=== PATIENT | female | born 1940 | race Caucasian/White ===

== ENCOUNTER 2020-08-01 14:04 | Observation (INO) | payer MEDICARE, MEDICAID ==
[~2020-08-01] VITALS: Ht 167.6 cm; Wt 66.4 kg
--- NOTE | 2020-08-01 14:15 | NUR ---
TASK RN: [facility] W CO SUDDEN ONSET RUE AND LLE WEAKNESS, ONSET APPROX 30MIN AGO. PT EVALUATED UPON ARRIVAL TO ED, NO CODE NEURO CALLED. PT REPORTS S/S HAVE IMPROVED SINCE ONSET. 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 SENSATION INTACT. BILAT LOWER EXTREMITIES WITH EQUAL STRENGTH, STRENGTH AGAINST GRAVITY AND SENSATION. BP/SPO2/ECG MONITORING IN PLACE. SINUS ARRYTHMIA ON MONITOR. 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 PT DENIES CP/JEFFERY/FLANK PAIN. ERP UPDATED TO PT AND PLACED STAT ORDERS. CT CALLED TO REQUEST HASTENED CT. REPORT TO PRIMARY RNWILLIAM.
[2020-08-01 14:46] LABS: BASOPHILS # (AUTO) 0.02 x10^3/uL (0-0.1); BASOPHILS % (AUTO) 0 % (0-1); EOSINOPHILS # (AUTO) 0.04 x10^3/uL (0-0.4); EOSINOPHILS % (AUTO) 1 % (1-7); LYMPHOCYTES # (AUTO) 0.98 x10^3/uL (1-3.4); LYMPHOCYTES % (AUTO) 14 % (22-44); MD NO; MEAN CORPUSCULAR HEMOGLOBIN 30.4 pg (27.0-34.8); MEAN CORPUSCULAR HGB CONC 33.4 g/dL (32.4-35.8); MEAN CORPUSCULAR VOLUME 91.1 fL (80-100); MEAN PLATELET VOLUME 9.1 fL (7.4-10.4); MONOCYTES # (AUTO) 0.51 x10^3/uL (0.2-0.8); MONOCYTES % (AUTO) 7 % (2-9); NEUTROPHILS # (AUTO) 5.58 x10^3/uL (1.8-6.8); NEUTROPHILS % (AUTO) 78 % (42-75); PLATELET COUNT 235 x10^3/uL (130-400); RED BLOOD COUNT 5.13 x10^6/uL (3.82-5.3); RED CELL DISTRIBUTION WIDTH 13.7 % (9.6-15.2)
[2020-08-01 14:53] LABS: TROPONIN I < 0.015 ng/mL (0.000-0.045)
[2020-08-01] MEDS ORDERED: LABETALOL 5MG/ML, 20ML IVPush ONE (15:00)
[2020-08-01 15:03] LABS: INTERNATIONAL NORMALIZED RATIO 1.02 (0.93-1.1); PROTHROMBIN TIME 10.5 Seconds (9.6-11.5)
[2020-08-01] MEDS ORDERED: OMNIPAQUE 350 MG/ML, 75ML BOTTLE ONE (15:03)
--- NOTE | 2020-08-01 15:03 | NUR ---
PT ASSISTED TO BEDSIDE COMMODE WITH CGA.
[2020-08-01] MEDS ORDERED: LABETALOL 5MG/ML, 20ML ONE (15:06)
--- NOTE | 2020-08-01 15:12 | NUR ---
EP SPECIALIST PER MAR.
--- NOTE | 2020-08-01 15:17 | NUR ---
MD AT BEDSIDE TO UPDATE PT ON POC.
--- NOTE | 2020-08-01 15:25 | NUR ---
[employer] ROBOT IN ROOM
[2020-08-01] MEDS ORDERED: POLYETHYLENE GLYCOL 17 GM PACKET PO PRN (17:00)
[2020-08-01] MEDS ORDERED: ASPIRIN 325 MG TABLET PO ONE (17:00)
[2020-08-01] MEDS ORDERED: ONDANSETRON 4 MG TABLET PO PRN (17:00)
[2020-08-01] MEDS ORDERED: ACETAMINOPHEN 650 MG/20.3 ML UDC PO PRN (17:00)
[2020-08-01] MEDS ORDERED: CLOPIDOGREL 75 MG TABLET PO ONE (17:00)
--- NOTE | 2020-08-01 18:34 | NUR ---
REPORT GIVEN TO BRYANT MANSFIELD.
[2020-08-01 18:55] VITALS: BP 199/79
[2020-08-01] MEDS ORDERED: ONDANSETRON ODT 4 MG PO PRN (19:30)
[2020-08-01 20:00] VITALS: BP 181/107
[2020-08-01] MEDS: HEPARIN 5,000 UNITS/ML, 1ML SQ SCH (20:15)
[2020-08-01] MEDS: POLYETHYLENE GLYCOL 17 GM PACKET PO SCH (20:16)
[2020-08-01] MEDS ORDERED: ATORVASTATIN 40 MG TABLET PO SCH (21:00)
[2020-08-01 21:58] VITALS: BP 157/97
[2020-08-01 22:08] VITALS: BP 157/97
[2020-08-01] MEDS ORDERED: ASCO500C10 PO (23:07)
[2020-08-01] MEDS ORDERED: DIPH25TA65 PO (23:07)
[2020-08-02] VITALS (7 sets, daily range): BP systolic 146–178; BP diastolic 80–106
[2020-08-02] MEDS: HEPARIN 5,000 UNITS/ML, 1ML SQ SCH ×2 (04:39→12:30)
[2020-08-02 06:20] LABS: CHOL/HDL RATIO 2.7; LDL/HDL RATIO 1.5 (0.5-3.0)
[2020-08-02] MEDS ORDERED: CLOPIDOGREL 75 MG TABLET PO SCH (09:00)
[2020-08-02] MEDS: POLYETHYLENE GLYCOL 17 GM PACKET PO SCH (09:00)
[2020-08-02] MEDS ORDERED: ASPIRIN 81 MG TABLET CHEW PO/NG SCH (09:00)
[2020-08-02] MEDS ORDERED: SENNA/DOCUSATE TABLET PO SCH (09:00)
[2020-08-02] MEDS ORDERED: BUPROPION SR 150 MG TABLET PO SCH (09:00)
[2020-08-02] MEDS ORDERED: LISI-170 PO (14:14)
[2020-08-02] MEDS ORDERED: ALPR0.5T PO (14:14)
[2020-08-02] MEDS ORDERED: BUPR-173 PO (14:14)
[2020-08-02] MEDS ORDERED: ASPI-515 PO/NG (14:18)
[2020-08-02] MEDS ORDERED: CLOP75TA PO (14:18)
[2020-08-02] MEDS ORDERED: ATOR20TA37 PO (14:18)
== END 2020-08-02 17:23 | disposition home or self-care (01) ==
LOC: SUATTDRO 16:38 → ED 16:39 → INTOOBSV 16:44 → EDIP 16:44 → ED 17:19 → 5SO 19:02
PROVIDERS: ADMIT Internal Medicine; ATTEND Internal Medicine
DX: G45.9 Transient cerebral ischemic attack, unspecified (principal); F32.9 Major depressive disorder, single episode, unspecified; F17.210 Nicotine dependence, cigarettes, uncomplicated; F13.20 Sedative, hypnotic or anxiolytic dependence, uncomplicated; I10 Essential (primary) hypertension; J44.9 Chronic obstructive pulmonary disease, unspecified; I63.511 Cerebral infarction due to unspecified occlusion or stenosis of right middle cerebral artery; I34.0 Nonrheumatic mitral (valve) insufficiency; Z79.899 Other long term (current) drug therapy; Z66 Do not resuscitate
CPT/HCPCS: 36415; 70450; 70496; 70498; 70551; 80047; 80061; 83036; 84484; 85025; 85610; 85730; 93005; 93306; 93356; 96372; 96374; 99291; G0378; J1644; Q9967

== ENCOUNTER 2020-09-19 17:12 | Emergency (ER) | payer MEDICARE, MEDICAID ==
[~2020-09-19] VITALS: Ht 167.6 cm; Wt 68.7 kg
[~2020-09-19 17:12] MED LIST: ALPR0.5T PO; ASCO500C10 PO; ASPI-515 PO/NG; ATOR20TA37 PO; BUPR-173 PO; CLOP75TA PO; DIPH25TA65 PO; LISI-170 PO
[2020-09-19] MEDS ORDERED: SODIUM CHLORIDE FLUSH 10ML SYR IVF ONE (17:30)
[2020-09-19 17:44] LABS: BASOPHILS % (AUTO) 1 % (0-1); EOSINOPHILS % (AUTO) 2 % (1-7); LYMPHOCYTES % (AUTO) 21 % (22-44); MEAN CORPUSCULAR HEMOGLOBIN 30.1 pg (27.0-34.8); MEAN CORPUSCULAR HGB CONC 32.9 g/dL (32.4-35.8); MEAN PLATELET VOLUME 9.3 fL (7.4-10.4); MONOCYTES % (AUTO) 9 % (2-9); NEUTROPHILS % (AUTO) 68 % (42-75); PLATELET COUNT 225 x10^3/uL (130-400); RED BLOOD COUNT 5.17 x10^6/uL (3.82-5.3); RED CELL DISTRIBUTION WIDTH 14.5 % (9.6-15.2)
[2020-09-19 17:48] LABS: MD NO
[2020-09-19 17:50] LABS: INTERNATIONAL NORMALIZED RATIO 1.07 (0.93-1.1); PROTHROMBIN TIME 11.3 Seconds (9.6-11.5)
[2020-09-19 17:52] LABS: ALANINE AMINOTRANSFERASE 18 U/L (12-78); ALBUMIN 4.4 g/dL (3.4-5.0); ANION GAP 2 mmol/L (5-15); CALCIUM 9.1 mg/dL (8.5-10.1); CHLORIDE 109 mmol/L (98-107)
[2020-09-19 17:57] LABS: ALKALINE PHOSPHATASE 72 U/L (45-117); BILIRUBIN,TOTAL 0.7 mg/dL (0.2-1.0); TOTAL PROTEIN 7.2 g/dL (6.4-8.2); TROPONIN I < 0.015 ng/mL (0.000-0.045)
--- NOTE | 2020-09-19 18:29 | NUR ---
PT RESTING IN [facility] AT THIS TIME; NADN. XRAY COMPLETE. 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 VSS AT THIS TIME.
[2020-09-19] MEDS ORDERED: LOSARTAN 25MG TABLET PO ONE (19:00)
--- NOTE | 2020-09-19 19:37 | NUR ---
pt medicated per mar.
[2020-09-19 19:48] VITALS: BP 170/81
--- NOTE | 2020-09-19 19:49 | NUR ---
PT D/C WITH D/C SUMMARY AND SCRIPTS. ALL QUESTIONS ANSWERED. PT AMBULATES TO REGISTRATION DESK WITH STEADY GAIT FOR D/C HOME AND DENIES ANY OTHER NEEDS PERTAINING TO THIS VISIT.
== END 2020-09-19 19:51 | disposition home or self-care (01) ==
LOC: ED 17:15
DX: I10 Essential (primary) hypertension (principal); R00.1 Bradycardia, unspecified; J44.9 Chronic obstructive pulmonary disease, unspecified; Z86.73 Personal history of transient ischemic attack (TIA), and cerebral infarction without residual deficits; Z87.891 Personal history of nicotine dependence
CPT/HCPCS: 36415; 71045; 80053; 84484; 85025; 85610; 93005; 99285

== ENCOUNTER 2020-10-01 10:36 | Day surgery (SDC) | payer MEDICARE, MEDICAID ==
[~2020-10-01] VITALS: Ht 167.6 cm; Wt 68.2 kg
[2020-10-01] MEDS ORDERED: LISI1TAB39 PO (11:02)
[2020-10-01] MEDS ORDERED: RIVA20TA PO (11:02)
[2020-10-01 11:11] VITALS: BP 124/79
[2020-10-01 11:42] LABS: ANION GAP 7 mmol/L (5-15); CALCIUM 9.2 mg/dL (8.5-10.1); CHLORIDE 104 mmol/L (98-107); CREATININE 1.22 mg/dL (0.55-1.02)
[2020-10-01] MEDS ORDERED: PROPOFOL 10 MG/ML, 20ML ONE (14:54)
== END 2020-10-01 13:58 | disposition home or self-care (01) ==
LOC: CACL 10:36
PROVIDERS: ATTEND Internal Medicine Cardiovascular Disease
DX: I48.0 Paroxysmal atrial fibrillation (principal); I10 Essential (primary) hypertension; J44.9 Chronic obstructive pulmonary disease, unspecified; Z79.01 Long term (current) use of anticoagulants; Z79.899 Other long term (current) drug therapy
CPT/HCPCS: 36415; 80048; 92960; 93005; J2704